=== PATIENT | female | born 1995 | race Caucasian/White ===

== ENCOUNTER 2018-10-26 06:59 | Day surgery (SDC) | payer OTHER ==
[2018-10-26] MEDS ORDERED: LACTATED RINGERS 1,000 ML IV ONE ×2 (07:13→10:45)
[2018-10-26] MEDS ORDERED: EPINEPHrine 1 MG/ML AMP ONE (07:34)
[2018-10-26] MEDS ORDERED: BUPIVACAINE 0.25% PF 30 ML VIAL ONE (07:34)
[2018-10-26 07:36] LABS: HCG UR QUAL NEGATIVE
[2018-10-26] MEDS ORDERED: VANCOMYCIN 1 GM VIAL ONE (07:40)
[2018-10-26] MEDS ORDERED: ceFAZolin 2 GM/50 ML 2 GM/50 ML BAG IV ONE (07:40)
--- NOTE | 2018-10-26 07:58 | ANESTHESIA ---
Pre-Anesthesia VS, & Labs - Diagnosis L knee ACL meniscus tear - Procedure L ACL reconstruction Vital Signs: Temp Pulse Resp BP Pulse Ox 36.2 C L 80 12 113/79 96 10/26/18 07:19 10/26/18 07:19 10/26/18 07:19 10/26/18 07:19 10/26/18 07:19 Height 5 ft 6 in Weight (kg) 74.5 kg - NPO >8 hours - Is Patient ?: No - Lab Results Lab results reviewed: Yes Home Medications and Allergies Home Medications: Ambulatory Orders Norgestimate-Ethinyl Estradiol [Norg-Ee 0.18-0.215-0.25/0.025] 1 each PO DAILY 10/24/18 Active Medications Vancomycin HCl 1 gm/ Sodium (Chloride) 250 mls @ 167 mls/hr IV ONCE RUEL Stop: 10/26/18 15:00 Norgestimate-Ethinyl Estradiol [Norg-Ee 0.18-0.215-0.25/0.025] 1 each PO DAILY 10/24/18 Allergies/Adverse Reactions: Allergies Allergy/AdvReac Type Severity Reaction Status Date / Time No Known Drug Allergies Allergy Verified 10/24/18 16:14 Anes History & Medical History - Anesthetic History Anesthesia Complications: reports: No previous complications Family history of Anesthesia Complications: Denies Family history of Malignant Hyperthermia: Denies - Medical History Cardiovascular: reports: None Pulmonary: reports: None Gastrointestinal: reports: None Urinary: reports: None Musculoskeletal: reports: Other Endocrine/Autoimmune: reports: None Skin: reports: None Exam General: Alert, Oriented x3, Cooperative Neck Mobility: Normal Mallampati classification: II Thyromental Distance: 4-6 cm Respiratory: Lungs clear, Normal breath sounds Cardiovascular: Regular rate Neurological: Normal speech Mental/Cognitive Status: Alert/Oriented X3, Normal for patient Plan Anesthesia Type: General, Femoral Block Regional Block: Per Surgeon's request for Post Op pain control Consent for Procedure(s) Verified and Reviewed: Yes Code Status: Attempt Resuscitation ASA classification: 1-Healthy patient Is this case an emergency?: No
[2018-10-26] MEDS ORDERED: VANCOMYCIN INJ 1 GM in SODIUM CHLORIDE 0.9% 250 ML IV SCH (08:00)
[2018-10-26] MEDS ORDERED: BUPIVACAINE 0.25% PF 30 ML VIAL SUBQ ONE ×2 (09:33→11:49)
[2018-10-26] MEDS ORDERED: ONDANSETRON 4 MG/2 ML VIAL IVP PRN (12:25)
[2018-10-26] MEDS ORDERED: oxyCODONE 5 MG TABLET PO PRN (12:25)
[2018-10-26] MEDS ORDERED: ONDANSETRON 4 MG/2 ML VIAL ONE (12:30)
--- NOTE | 2018-10-26 12:42 | OPERATIVE REPORT ---
Operative Report - General Procedure Date: 10/26/18 Planned Procedure: Left ACL reconstruction with BTB autograft, Meniscal repair versus debridem Pre-Op Diagnosis: Left ACL rupture, meniscal tear Procedure Performed: Left arthroscopic assisted anterior cruciate ligament reconstruction, with bone patellar tendon bone autograft, limited intra-articular debridement Post Op Diagnosis: Left ACL rupture, healing lateral meniscal tear - Procedure Note Primary Surgeon: DAMIEN MILIAN Secondary Surgeon: SELMA RAINEY Anesthesia Technique: General LMA Estimated Blood Loss (mL): 25 - Other Other Information/Narrative: Indication For Surgery: 23-year-old female with a left knee injury in June 2018, initially suspected to have a patellar dislocation, she had reinjury to the knee in early August following some rehab, and an MRI obtained at that point it demonstrated an ACL tear. We had extensive discussion in clinic about operative and nonoperative treatment of the problem, and the risks, benefits, and alternatives were discussed. Risks include pain, bleeding, infection, damage to nearby structures and cartilage, lack of symptom relief, need for further surgery, DVT, PE, stroke, and . Written consent was obtained. Examination Under Anesthesia: ROM equal to the contralateral side. Stable dial at 30 & 90 degrees. Stable to varus and valgus stressing at 0 & 30 degrees. 2B Jordan. Positive Pivot shift. Negative mechanical sensation Diagnostic Arthroscopy: No loose bodies. Synovium normal. Patella cartilage small a linear crack lateral patellar facet, approximately a 5 mm x 5 mm chondral defect medial patellar facet. Trochlear cartilage normal. Medial femoral condyle cartilage normal. Medial tibial plateau cartilage normal. Medial meniscus no evidence of tear root intact. ACL was torn, scarred PCL. PCL was intact. Lateral femoral condyle cartilage is normal with some focal areas of wear. Lateral tibial plateau cartilage normal. Lateral meniscus evidence of prior partial thickness meniscal root injury, 2 lateral meniscus root firmly adherent to the tibial plateau, stable to probing, approximately 5-7 mm partial-thickness vertical/horizontal tear posterior body, stable. Procedure in Detail: The patient was met in the pre-operative hold area on the day of the procedure. The operative extremity was signed and questions were answered. The patient was brought to the operating room and a general anesthetic was administered. Supine position was used and bony prominences were padded. An examination under anesthesia was performed. Standard prepping and draping was performed. A time out confirmed patient identification, laterality, procedure, allergies, antibiotics, and images. An Esmarch was used to exsanguinate the limb and the tourniquet was elevated to 250 mmHg. Total tourniquet time was approximately 140 minutes. A standard diagnostic arthroscopy of the knee was performed through anterolateral and anteromedial portal sites. The anteromedial portal was created under direct visualization after localizing with a spinal needle. The findings can be found above. I then proceeded to the patellar tendon graft harvest. Patellar Tendon Graft Palisades: A 6 cm incision was made just medial to the mi dline of the knee from the inferior pole of the patellar tendon to the tibial tubercle. Sharp dissection was brought down to the peritenon and full-thickness skin flaps were created. I then made a midline longitudinal incision in the peritenon and dissected it off the underlying patellar tendon. I then measured the width of the tendon and made harkins for the central 10 mm. A 10 blade was used to cut the tendon at these harkins in line with its fibers from the patella to the tibial tubercle. I then used Bovie electrocautery to aury out my patellar and tibial bone blocks at 22 mm for the patella and a 30 mm for the tibia. I then straightened the knee and harvested a triangular bone block from the patella and a trapezoidal bone block from the tibia using a sagittal saw and an osteotome. There were no associated fractures. I then brought the graft to the back table and prepped it for the tibia to be 10 mm and the patella to be 9.5 mm. The patella was bulletized in a single 2.0 mm drill hole was placed. 2 drill holes were placed in the tibia. ACL Prep: I then used a sucker shaver and a radiofrequency ablation wand to release all residual ACL tissue off of the lateral wall. I debrided all excess tissue from the notch. I placed the camera into the anteromedial portal and ensured that I was cleared all the way to the back wall. I then brought the flip cutter aiming device through the lateral portal. I positioned into the central position of the [place] ACL footprint on the femur ensuring to leave a 2 mm back wall and stay off of the distal articular cartilage. Once satisfied with the position, the bullet was brought down to the skin and a aury was made. A 2 cm longitudinal skin incision was made and the IT band was split in line with its fibers. A sen rake was used to retract the IT band posterior and the bullet was brought down to the lateral femoral wall. An appropriately sized flip cutter was then drilled into the notch. It was then flipped and the lateral wall was scored confirming an appropriate position. The bullet was then malleted into place and a 25mm femoral tunnel was drilled. Bony debris was removed with a shaver. A fiberstick suture was brought into the joint, retrieved out the lateral portal, and clamped to itself. I then identified the ACL footprint on the tibia and set the tibial guide at 55. I aimed to have the guide pin come out 7 mm anterior to the PCL and in line with the posterior borders of the anterior horn of the lateral meniscus, on the lateral border of the medial tibial spine. The guidewire was then brought into the joint. The knee was then straightened to confirm that it would not impinge on the notch. The guidewire was clamped with a Justin. The skin was then protected and the tibial tunnel was drilled with the appropriate sized reamer. The fiberwire was then brought through the tibial tunnel. The graft was then loaded onto the tightrope and the graft was marked at end of the bone block. The tightrope sutures were then passed and the button was brought out of the skin over the lateral femur until the femoral bone block was in the notch. I then grabbed the bone block with a Baldomero and pushed posteriorly to be in line with the femoral tunnel. The bone block was then delivered into the femoral tunnel and the ink harkins could no longer be seen. I then sequentially tightened the tight rope sutures and guided the button back down beneath the IT band and visualized it on the lateral femoral cortex. The knee was then cycled 20 times with tension on the graft. I then placed a large bump under the distal femur the pulled on the tibial bone block sutures. There was no excess bone block coming from the tibia. A posterior drawer was placed on to the proximal tibia. The guidewire was then placed into the tibial tunnel and the tibial screw was placed with excellent bony purchase. Jordan had been restored. I then brought the arthroscope back into the joint and probed the graft finding it to have excellent tension. Final images were taken. The wounds were copiously irrigated. I then placed morselized bone into the patellar defect and DBM into the tibial defect. The peritenon was then closed with a running 0 Vicryl. The IT band was closed with interrupted 0 Vicryl, the subdermal tissues with 2 O Vicryl, and the skin with running Monocryl. Steri- Strips were applied and 30 cc of 0.5% Marcaine was placed under the incisions. The tourniquet was then dropped and a sterile dressing was placed. The ROM brace was placed and was locked out in full extension. A femoral nerve block was placed was placed by anesthesia. Then they were awakened and transferred to the recovery room.
[2018-10-26] MEDS ORDERED: fentaNYL 100 MCG/2 ML VIAL ONE (12:44)
[2018-10-26] MEDS ORDERED: METOCLOPRAMIDE 10 MG/2 ML VIAL ONE (12:52)
[2018-10-26 13:44] VITALS: BP 98/71
== END 2018-10-26 07:00 | disposition home or self-care (01) ==
LOC: SDS 06:59
PROVIDERS: ATTEND Orthopaedic Surgery
PROC: 0LBR0ZZ Excision of Left Knee Tendon, Open Approach (ICD-10-PCS; 2018-10-26)
PROC: 0MRP47Z Replacement of Left Knee Bursa and Ligament with Autologous Tissue Substitute, Percutaneous Endoscopic Approach (ICD-10-PCS; principal; 2018-10-26 08:15)
DX: S83.512A Sprain of anterior cruciate ligament of left knee, initial encounter (principal); X50.9XXA Other and unspecified overexertion or strenuous movements or postures, initial encounter; Y93.68 Activity, volleyball (beach) (court); Y99.8 Other external cause status
CPT/HCPCS: 29888; 81025; C1713; J0690; J2765; J3370; J7120